=== PATIENT | male | born 1970 ===

== ENCOUNTER 2017-06-23 16:54 | Outpatient (CLI) | payer BC | END 2017-06-23 16:55 | LOC: LABRHC 16:54 | PROVIDERS: ATTEND Physician Assistant | DX: S91.302A Unspecified open wound, left foot, initial encounter (principal); X58.XXXA Exposure to other specified factors, initial encounter; Y92.9 Unspecified place or not applicable; Y93.9 Activity, unspecified | CPT/HCPCS: 87070 ==

== ENCOUNTER 2017-06-27 08:31 | Outpatient (CLI) | payer BC ==
[2017-06-27 08:44] LABS: BASOPHILS % 0.8 (0.0-1.5); MEAN CORPUSCULAR HEMOGLOBIN 29.7 pg (28.0-34.0); MEAN CORPUSCULAR VOLUME 90.7 fl (80.0-100.0); NEUTROPHILS # 5.1 # k/uL (1.4-7.7)
[2017-06-27 09:27] LABS: eGFR (African) > 60; eGFR (Non-African) > 60
== END 2017-06-27 08:32 ==
LOC: LAB 08:31
PROVIDERS: ATTEND Physician Assistant
DX: S91.302A Unspecified open wound, left foot, initial encounter (principal); Z00.00 Encounter for general adult medical examination without abnormal findings
CPT/HCPCS: 36415; 80053; 83036; 85025